=== PATIENT | female | born 1990 | race Caucasian/White ===

== ENCOUNTER 2016-06-20 05:43 | Day surgery (SDC) | payer MEDICAID ==
[~2016-06-20] VITALS: Ht 172.7 cm; Wt 131.5 kg
[~2016-06-20 05:43] MED LIST: CARI350T PO; DIAZ2TAB PO; MIRT15TA6 PO; OXYC-100 PO; ZOLP10TA2 PO; ZOLP10TA6 PO
[2016-06-20 06:42] LABS: BASOPHILS % 0.7 % (0.0-2.0); EOSINOPHILS % 7.7 % (0.0-5.0); HEMOGLOBIN. 13.8 g/dL (12.0-16.0); LYMPHOCYTES % 41.3 % (20.0-50.0); MEAN CORPUSCULAR HEMOGLOBIN 27.4 pg (28.0-32.0); MEAN CORPUSCULAR HGB CONC 32.8 g/dL (31.0-37.0); MEAN CORPUSCULAR VOLUME 83.6 fL (81.0-99.0); NEUTROPHILS % 44.3 % (40.0-76.0); PLATELET 199 x1000/uL (130-400); RED BLOOD CELL COUNT 5.02 mill/uL (4.2-5.4); RED CELL DISTRIBUTION WIDTH 13.9 % (11.6-14.6); WHITE BLOOD COUNT 10.2 x1000/uL (4.5-11.0)
[2016-06-20] MEDS ORDERED: LACTATED RINGERS 1,000 ML IV SCH (06:50)
[2016-06-20 06:51] LABS: ANION GAP 12; CALCIUM 8.7 mg/dL (8.5-10.1); CARBON DIOXIDE 24 mEq/L (21-32); CHLORIDE 108 mEq/L (98-107); INDEX HEMOLYSI 1 (1-3); INDEX ICTERIC 1 (1-4); INDEX LIPEMIC 1 (1-3); UREA NITROGEN BLOOD 14 mg/dL (7-21); eGFR > 60 mL/min (>60)
[2016-06-20] MEDS ORDERED: PRED5DRO7 EACHEYE (07:01)
[2016-06-20] MEDS ORDERED: ACET250T26 PO (07:01)
[2016-06-20] MEDS ORDERED: BIMA2.5D4 RIGHTEYE (07:01)
[2016-06-20] MEDS ORDERED: PRED1DRO LEFTEYE (07:03)
[2016-06-20 07:17] LABS: UCG SCREEN NEGATIVE
[2016-06-20] MEDS ORDERED: MIDAZOLAM HCL 2 MG/2 ML VIAL ONE (08:34)
[2016-06-20] MEDS ORDERED: FENTANYL CITRATE/PF 50MCG/ML 2ML VIAL ONE (08:34)
[2016-06-20] MEDS ORDERED: PROPOFOL 200MG/20ML VIAL IV ONE ×2 (08:35→09:14)
[2016-06-20] MEDS ORDERED: LIDOCAINE HCL 1% 20ML VIAL (Pyxis) INJ ONE ×2 (08:35→09:14)
[2016-06-20] MEDS ORDERED: SODIUM CHLORIDE 0.9% 10ML VIAL ONE (09:14)
[2016-06-20] MEDS ORDERED: DEXAMETHASONE 4MG/ML 1ML VIAL ONE (09:14)
[2016-06-20] MEDS ORDERED: CEFAZOLIN SODIUM 1000MG/VIAL ONE (09:14)
[2016-06-20] MEDS ORDERED: ONDANSETRON HCL 4MG/2ML VIAL ONE (09:15)
[2016-06-20] MEDS ORDERED: HYDROMORPHONE HCL/PF 2MG/ML CPJ IV PRN (09:30)
[2016-06-20] MEDS ORDERED: ONDANSETRON HCL 4MG/2ML VIAL IV PRN (09:30)
[2016-06-20] MEDS ORDERED: LABETALOL HCL 20MG/4ML CARPUJECT IV PRN (09:30)
[2016-06-20] MEDS: MEPERIDINE HCL/PF 25MG/ML CPJ IV PRN ×2 (10:02→10:35)
[2016-06-20 10:35] VITALS: BP 110/60
[2016-06-20] MEDS ORDERED: BALANCED SALT IRRIG SOLN 15ML ONE (12:20)
[2016-06-20] MEDS ORDERED: NEO/POLYMYX B SULF/DEXAMETH OPHTH OINT 3.5GM ONE (12:20)
[2016-06-20] MEDS ORDERED: BUPIVACAINE HCL/PF 0.75% (7.5MG/ML) 10ML ONE (12:20)
[2016-06-20] MEDS ORDERED: TETRACAINE 0.5% OPHTH DROPS 4ML ONE (12:20)
[2016-06-20] MEDS ORDERED: CIPROFLOXACIN 0.3% OPHTH SOLN 2.5ML ONE (12:20)
[2016-06-20] MEDS ORDERED: LIDOCAINE HCL 2%/EPINEPHRINE 1:100,000 20 ML VIAL INFIL ONE (12:20)
== END 2016-06-20 11:45 | disposition home or self-care (01) ==
LOC: OR 05:43
PROVIDERS: ATTEND Ophthalmology
DX: T85.398A Other mechanical complication of other ocular prosthetic devices, implants and grafts, initial encounter (principal); H35.82 Retinal ischemia; F17.210 Nicotine dependence, cigarettes, uncomplicated
CPT/HCPCS: 36415; 67028; 67120; 80048; 81025; 85025; 93005; A4216; J0690; J1100; J2175; J2250; J2405; J3010; J3490; J7120; J2704